=== PATIENT | female | born 1995 | race Caucasian/White ===

== ENCOUNTER 2023-12-15 22:40 | Observation (INO) | payer BC, MEDICAID ==
[~2023-12-15] VITALS: Ht 170.2 cm; Wt 108.9 kg
== END 2023-12-15 23:54 | disposition home or self-care (01) ==
LOC: LDRP 22:40
PROVIDERS: ADMIT Obstetrics & Gynecology; ATTEND Obstetrics & Gynecology
DX: Z36.89 Encounter for other specified antenatal screening (principal); Z3A.28 28 weeks gestation of pregnancy
CPT/HCPCS: 59025; 81002; 94762; G0378

== ENCOUNTER 2024-01-28 23:55 | Observation (INO) | payer BC, MEDICAID ==
[~2024-01-28] VITALS: Ht 170.2 cm; Wt 115.2 kg
[2024-01-29 01:02] LABS: Fern Testing Negative
== END 2024-01-29 02:15 | disposition home or self-care (01) ==
LOC: LDRP 23:55
PROVIDERS: ADMIT Obstetrics & Gynecology; ATTEND Obstetrics & Gynecology
DX: Z36.89 Encounter for other specified antenatal screening (principal); Z3A.34 34 weeks gestation of pregnancy
CPT/HCPCS: 59025; 76818; 81002; 84112; 94760; G0378; Q0114